=== PATIENT | female | born 1980 | race Caucasian/White ===

== ENCOUNTER 2018-07-03 16:10 | Observation (INO) ==
--- NOTE | 2018-07-03 16:26 | Emergency Department Note ---
Disposition Clinical Impression: Chest pain Disposition: Admitted As Inpatient Condition: Good General Adult HPI - General Stated complaint: muscle ache/cramp chest pain (anxiety like) Time Seen by Provider: 07/03/18 16:10 Source: patient Mode of arrival: ambulatory Limitations: no limitations Nursing Notes Reviewed: Yes Vital Signs Reviewed: Yes - History of Present Illness HPI Narrative: Patient complains of muscle cramps and chest pain/cramps for the past week. She says it feels like anxiety that she has had in the past. She went to the urgent care and they sent her to the emergency department. She will have any shortness of breath or other complaints present time. Onset (ago): day(s) (7 days) Location: chest Radiation: non-radiation Pain Severity: mild Quality: aching Consistency: intermittent Improves with: nothing Worsens with: nothing Associated symptoms: Reports: denies other symptoms - Related Data Home Medications Medication Instructions Recorded Confirmed Celecoxib [Celebrex] 200 mg PO DAILY 02/26/18 07/03/18 PARoxetine HCl [Paroxetine HCl] 40 mg PO DAILY 02/26/18 07/03/18 clonazePAM [Clonazepam] 1 mg PO HS 05/08/18 07/03/18 hydroCHLOROthiazide 12.5 mg PO HS 05/08/18 07/03/18 [Hydrochlorothiazide] hydrOXYzine pamoate [HydrOXYzine 25 - 50 mg PO HS 07/03/18 07/03/18 Pamoate] Previous Rx's Medication Instructions Recorded Ibuprofen [Motrin] 600 mg PO Q6HR PRN #60 tab 05/09/18 Allergies Allergy/AdvReac Type Severity Reaction Status Date / Time No Known Allergies Allergy Verified 02/26/18 11:22 All systems ED: reviewed and negative except as stated. Review of Systems: As Per HPI Constitutional: Denies: fever, chills, weakness, weight change Eyes: Denies: eye pain, eye discharge, vision change ENT ED: Denies: ear pain, throat pain, dental pain, hearing loss, epistaxis, congestion, dysphagia Cardiovascular: Denies: chest pain, palpitations, dyspnea on exertion, edema, syncope Respiratory: Denies: cough, dyspnea, wheezes, hemoptysis, stridor Gastrointestinal: Denies: abdominal pain, nausea, vomiting, diarrhea, constipation, hematemesis, melena, hematochezia Genitourinary: Denies: dysuria, frequency, hematuria, discharge Musculoskeletal: Denies: back pain, neck pain, arthralgia, myalgia Integumentary: Denies: rash, abrasion, lesions Neurological: Denies: headache, weakness, numbness, paresthesias, confusion, abnormal gait, vertigo Psychiatric: Denies: anxiety, depression, suicidal thoughts, homicidal thoughts, auditory hallucinations, visual hallucinations Endocrine: Denies: fatigue Hematological/Lymphatic: Denies: easy bleeding, easy bruising Past Medical History - Past Medical History Attestation: Yes The following information was validated with the patient. Source: patient, nursing notes reviewed Medical history: Reports: hypertension Surgical history: Reports: cholecystectomy Psychiatric history: Reports: anxiety, depression EDUCATION ASSOCIATE history: Reports: no EDUCATION ASSOCIATE history - Social History Smoking Status: Never smoker Smokeless Tobacco Status: No Alcohol use: Reports: none Drug use: Reports: none Physical Exam - General Limitations: no limitations General appearance: alert, in no apparent distress - Head Head exam: atraumatic, normocephalic, normal inspection - Eye Eye exam: Present: normal appearance, PERRL, EOMI - ENT ENT exam: normal exam, normal oropharynx, mucous membranes moist - Neck Neck exam: Present: normal inspection, full ROM, trachea midline - Chest Chest inspection: Present: normal inspection, symmetric chest wall rise - Respiratory Respiratory exam: Present: normal lung sounds bilaterally - Cardiovascular Cardiovascular exam: Present: regular rate, normal rhythm, normal heart sounds - Abdominal Exam Abdominal exam: Present: soft, Non-Tender. Absent: tenderness, distention, guarding, rebound, rigidity - Extremities Exam Extremities exam: Present: normal inspection, full ROM. Absent: tenderness, pedal edema - Back Exam Back exam: Present: normal inspection, full ROM. Absent: tenderness - Neurological Exam Neurological exam: Present: alert, oriented X3 - Psychiatric Psychiatric exam: Present: normal affect, normal mood - Skin Skin exam: Present: warm, dry, intact Course Vital Signs Temperature 99.6 F 07/03/18 16:24 Pulse Rate 88 07/03/18 16:24 Respiratory Rate 18 07/03/18 16:24 Blood Pressure 132/97 07/03/18 16:24 O2 Sat by Pulse Oximetry 97 07/03/18 16:24 Temperature 97.8 F 07/03/18 20:35 Pulse Rate 70 07/03/18 20:35 Respiratory Rate 15 07/03/18 20:35 Blood Pressure 110/76 07/03/18 20:35 O2 Sat by Pulse Oximetry 98 07/03/18 20:35 Oxygen Delivery Oxygen Delivery Room Air Medical Decision Making - MDM Narrative Medical decision making narrative: I reviewed the patient's medication list Patient's laboratory studies EKG chest x-ray since unremarkable. She did get total relief with 2 nitroglycerin tablets. - Lab Data Lab results reviewed: Yes I reviewed the patient's lab results. Result diagrams: 07/03/18 16:39 07/03/18 16:39 Lab Results 07/03/18 07/03/18 07/03/18 Range/Units 16:39 16:39 16:39 WBC 11.7 H (4.3-11.1) K/mcL RBC 4.44 (3.82-4.97) M/mcL Hgb 14.0 (11.5-15.4) g/dL Hct 41.3 (35.3-44.9) % MCV 93.0 (83.0-100.0) fL MCH 31.5 (28.0-33.3) pg MCHC 33.9 (31.6-35.5) g/dL RDW 12.8 (11.5-14.5) % Plt Count 309 (140-400) K/mcL MPV 10.1 (9.4-12.4) fL Immature Gran % 0.7 (0-4) % Seg Neutrophils % 59.1 % Lymphocytes % 30.2 % Monocytes % 7.5 % Eosinophils % 1.9 % Basophils % 0.6 % Neutrophils # 6.9 (1.6-8.9) K/mcL Lymphocytes # 3.5 (0.6-4.6) K/mcL Monocytes # 0.9 (0.0-1.3) K/mcL Eosinophils # 0.2 (0.0-0.6) K/mcL Basophils # 0.1 (0.0-0.2) K/mcL PT 10.9 (9.4-12.1) Seconds INR 1.0 APTT 31.8 (26.0-36.0) Seconds Sodium 134 L (136-145) mEq/L Potassium 3.4 L (3.5-5.1) mEq/L Chloride 99 (98-107) mEq/L Carbon Dioxide 28 (23-29) mEq/L BUN 13 (6-20) mg/dL Creatinine 0.79 (0.60-1.20) mg/dL Est GFR ( Amer) > 60 (> 60) Est GFR (Non-Af Amer) > 60 (> 60) BUN/Creatinine Ratio 16 (6-26) Glucose 99 (70-105) mg/dL Calculated Osmolality 278 L (280-300) Calcium 9.4 (8.6-10.3) mg/dL Total Bilirubin 0.7 (0.3-1.0) mg/dL AST 15 (13-39) Units/L ALT 15 (7-52) Units/L Alkaline Phosphatase 71 (34-104) Units/L Troponin I < 0.03 (< 0.04) ng/mL Serum Total Protein 6.9 (6.4-8.9) g/dL Albumin 4.1 (3.5-5.7) g/dL Globulin 2.8 (2.4-3.5) g/dL Albumin/Globulin Ratio 1.5 (1.1-2.2) 07/03/18 Range/Units 19:03 WBC (4.3-11.1) K/mcL RBC (3.82-4.97) M/mcL Hgb (11.5-15.4) g/dL Hct (35.3-44.9) % MCV (83.0-100.0) fL MCH (28.0-33.3) pg MCHC (31.6-35.5) g/dL RDW (11.5-14.5) % Plt Count (140-400) K/mcL MPV (9.4-12.4) fL Immature Gran % (0-4) % Seg Neutrophils % % Lymphocytes % % Monocytes % % Eosinophils % % Basophils % % Neutrophils # (1.6-8.9) K/mcL Lymphocytes # (0.6-4.6) K/mcL Monocytes # (0.0-1.3) K/mcL Eosinophils # (0.0-0.6) K/mcL Basophils # (0.0-0.2) K/mcL PT (9.4-12.1) Seconds INR APTT (26.0-36.0) Seconds Sodium (136-145) mEq/L Potassium (3.5-5.1) mEq/L Chloride (98-107) mEq/L Carbon Dioxide (23-29) mEq/L BUN (6-20) mg/dL Creatinine (0.60-1.20) mg/dL Est GFR ( Amer) (> 60) Est GFR (Non-Af Amer) (> 60) BUN/Creatinine Ratio (6-26) Glucose (70-105) mg/dL Calculated Osmolality (280-300) Calcium (8.6-10.3) mg/dL Total Bilirubin (0.3-1.0) mg/dL AST (13-39) Units/L ALT (7-52) Units/L Alkaline Phosphatase (34-104) Units/L Troponin I < 0.03 (< 0.04) ng/mL Serum Total Protein (6.4-8.9) g/dL Albumin (3.5-5.7) g/dL Globulin (2.4-3.5) g/dL Albumin/Globulin Ratio (1.1-2.2) - Radiology Data Radiology results reviewed: Yes I reviewed the patient's radiology results. - EKG Data EKG #1 EKG attestation: Yes I reviewed and interpreted this EKG. EKG results narrative: EKG shows a sinus rhythm with a rate of 94 bpm. KS interval is 145 ms. QRS duration 83 ms. QT interval 362 QTc interval 414 ms R axis of [address] elevation. Nonspecific T changes are noted
[2018-07-03] MEDS ORDERED: Aspirin 81 MG TAB.CHEW PO STA (16:34)
[2018-07-03] MEDS ORDERED: Nitroglycerin 0.4 MG TAB.SUBL SL PRN ×2 (16:34→20:33)
[2018-07-03 16:43] LABS: Basophils # 0.1 K/mcL (0.0-0.2); Basophils % 0.6 %; Eosinophils # 0.2 K/mcL (0.0-0.6); Eosinophils % 1.9 %; Hematocrit 41.3 % (35.3-44.9); Immature Granulocytes % 0.7 % (0-4); Lymphocytes # 3.5 K/mcL (0.6-4.6); Lymphocytes % 30.2 %; Mean Corpuscular HGB Conc 33.9 g/dL (31.6-35.5); Mean Corpuscular Hemoglobin 31.5 pg (28.0-33.3); Mean Platelet Volume 10.1 fL (9.4-12.4); Monocytes # 0.9 K/mcL (0.0-1.3); Monocytes % 7.5 %; Neutrophils # 6.9 K/mcL (1.6-8.9); Platelet Count 309 K/mcL (140-400); Red Blood Count 4.44 M/mcL (3.82-4.97); Red Cell Distribution Width 12.8 % (11.5-14.5); Segmented Neutrophils % 59.1 %
[2018-07-03] MEDS ORDERED: 0.9 % Sodium Chloride 1,000 ML IVC SCH ×2 (16:45→20:33)
[2018-07-03 16:48] LABS: Prothrombin Time 10.9 Seconds (9.4-12.1)
[2018-07-03 16:50] LABS: Activated Partial Thrombo Time 31.8 Seconds (26.0-36.0)
[2018-07-03 17:01] LABS: Troponin I < 0.03 ng/mL (< 0.04)
[2018-07-03 17:13] LABS: Alanine Aminotransferase 15 Units/L (7-52); Albumin 4.1 g/dL (3.5-5.7); Albumin/Globulin Ratio 1.5 (1.1-2.2); Alkaline Phosphatase 71 Units/L (34-104); Aspartate Amino Transferase 15 Units/L (13-39); BUN/Creatinine Ratio 16 (6-26); Bilirubin,Total 0.7 mg/dL (0.3-1.0); Blood Urea Nitrogen 13 mg/dL (6-20); Calcium 9.4 mg/dL (8.6-10.3); Carbon Dioxide 28 mEq/L (23-29); Chloride 99 mEq/L (98-107); Globulin 2.8 g/dL (2.4-3.5); Glucose 99 mg/dL (70-105); Osmolality,Calculated 278 (280-300); Potassium 3.4 mEq/L (3.5-5.1); Sodium 134 mEq/L (136-145); Total Protein 6.9 g/dL (6.4-8.9); eGFR For Non-African Americans > 60 (> 60)
[2018-07-03] MEDS ORDERED: Isovue-370 500 ML BOTTLE IVP ONE (18:52)
[2018-07-03] MEDS ORDERED: Naloxone 0.4 MG/ML INJ IVP PRN (20:33)
[2018-07-03] MEDS ORDERED: Ibuprofen 600 MG TABLET PO PRN (20:33)
[2018-07-03] MEDS ORDERED: hydroCHLOROthiazide 25 MG TABLET PO SCH (21:00)
[2018-07-03] MEDS ORDERED: hydrOXYzine pamoate 25 MG CAPSULE PO SCH (21:00)
[2018-07-03] MEDS ORDERED: clonazePAM 1 MG TABLET PO SCH (21:00)
[2018-07-03] MEDS ORDERED: 0.9 % Sodium Chloride 1,000 ML ONE (21:36)
[2018-07-04 07:57] LABS: Basophils # 0.1 K/mcL (0.0-0.2); Basophils % 0.6 %; Eosinophils # 0.2 K/mcL (0.0-0.6); Eosinophils % 2.7 %; Hematocrit 37.9 % (35.3-44.9); Hemoglobin 12.8 g/dL (11.5-15.4); Immature Granulocytes % 0.7 % (0-4); Lymphocytes # 2.8 K/mcL (0.6-4.6); Lymphocytes % 31.4 %; Mean Corpuscular HGB Conc 33.8 g/dL (31.6-35.5); Mean Corpuscular Hemoglobin 31.7 pg (28.0-33.3); Mean Corpuscular Volume 93.8 fL (83.0-100.0); Monocytes # 0.6 K/mcL (0.0-1.3); Monocytes % 7.1 %; Neutrophils # 5.2 K/mcL (1.6-8.9); Platelet Count 270 K/mcL (140-400); Red Blood Count 4.04 M/mcL (3.82-4.97); Segmented Neutrophils % 57.5 %
[2018-07-04 08:10] LABS: BUN/Creatinine Ratio 14 (6-26); Blood Urea Nitrogen 12 mg/dL (6-20); Calcium 8.7 mg/dL (8.6-10.3); Carbon Dioxide 28 mEq/L (23-29); Chloride 102 mEq/L (98-107); Glucose 105 mg/dL (70-105); Osmolality,Calculated 282 (280-300); Potassium 3.6 mEq/L (3.5-5.1); Sodium 136 mEq/L (136-145); eGFR For Non-African Americans > 60 (> 60)
--- NOTE | 2018-07-04 08:38 | Internal Med History&Physical ---
Date of Encounter: 07/04/18 Time of Encounter: 12:20 Assessment and Plan (1) Chest pain Current visit: Yes Status: Acute she has chest pain relieved with nitro x2. she has htn. concern for ischemia with these symptoms. she was obs trop neg x 3 she is cp free currently. will d/c home outpt stress Qualifiers: Chest pain type: unspecified Qualified Code(s): R07.9 - Chest pain, unspecified (2) Essential (primary) hypertension Current visit: Yes Status: Acute will cont the hctz. (3) Depression with anxiety Current visit: Yes Status: Acute no changes made to medication (4) Status post hysterectomy Current visit: No Status: Acute she is off the estrogen. pe study neg for pe. Internal Medicine - H&P: HPI Chief complaint: chest pain Admitted From: Home History of present illness: Ms. Sena is a 37 year old female she was admitted for obs from the ER last night. she came to the ER with a 7 hx of intermittent CP. it is substernal, no radiation, will come and go she is not sure what brings it on or resolves it except nitro. She did get 2 nitro in the ER last night that did relieve her pain. because the nitro relieved her pain, the er physician was concerned it was cardiac related and felt she need to obs for a corinna. she did have some chest pain last night after getting to the floor and she was given ibuprofen to help. She had hysterectomy/bso done 1/ for endometrial hyperplasia. because of her recent surg, a ct angio of the chest was done to r/o pe. there was no pe on the study. she is not diaphoretic, no sob, no cough. no rash. no dizzy, no syncope, no pain with palpation she has also been having myalagia dn cramps in her feet legs thighs bilateral for several months. she was in the UC on saturday with a 1 day hx of rhinorhea and given augmentin for a sinus infection. she is taking it. she is not having gi side effects. she has been under significant strain with the care of her nephew. Past Med Surg Social Fam HX - Past Medical History Medical history: asthma, hypertension, migraine, other (obesity) Additional medical history: Anxiety and depression. Psychiatric history: anxiety, depression - Past Surgical History Surgical History: cholecystectomy (2008), hysterectomy (robotic assist hyst, bso, cystoscopy 05/07/18), other (dental 2009, t&a, d&c 2018, diagnostic laproscopy d&c polypectomy 02/26/2018) Additional surgical history: Pt states she had a Hysterectomy on 05/08/18 and that she had Lymes Disease as a child. - Social History Smoking Status: Never smoker Smokeless Tobacco Status: No Alcohol use: none Drug use: none - Family History Mother Hx Family Endocrine Disorder: Yes (hypothyroid) Father Hx Family Endocrine Disorder: Yes (dm2) Paternal Grandmother Hx Family Endocrine Disorder: Yes (dm2) Maternal Grandmother Hx Family Cardiac Disorders: Yes (htn) Hx Family Cancer: Yes Maternal Grandfather Hx Family Cardiac Disorders: Yes (htn) Hx Family Endocrine Disorder: Yes (dm2) Internal Medicine - H&P: Meds Celecoxib [Celebrex] 200 mg PO DAILY 02/26/18 [History] PARoxetine HCl [Paroxetine HCl] 40 mg PO DAILY 02/26/18 [History] clonazePAM [Clonazepam] 1 mg PO HS 05/08/18 [History] hydroCHLOROthiazide [Hydrochlorothiazide] 12.5 mg PO HS 05/08/18 [History] hydrOXYzine pamoate [HydrOXYzine Pamoate] 25 - 50 mg PO HS 07/03/18 [History] Allergy/AdvReac Type Severity Reaction Status Date / Time No Known Allergies Allergy Verified 02/26/18 11:22 All Systems PM: A 10-system review of systems was performed and is negative for pertinent findings except as documented above in the HPI. - Constitutional Constitutional: no chills, no excessive sweating, no fatigue, no fever(s), no night sweats, no weakness - EENT Eyes: no change in vision Nose, mouth and throat: nasal discharge, no sore throat - Cardiovascular Cardiovascular ROS IM: chest pain, no claudication, no diaphoresis, no dyspnea, no dyspnea on exertion, no edema, no irregular heart rhythm, no lightheadedness, no palpitations, no syncope - Respiratory Respiratory: no cough, no dyspnea, no wheezing - Gastrointestinal Gastrointestinal: no constipation, no diarrhea, no loose stools, no melena, no nausea, no vomiting - Genitourinary Genitourinary: no dysuria - Musculoskeletal Musculoskeletal ROS IM: muscle cramps, myalgias, no arthralgias, no joint swelling, no limited range of motion, no muscle weakness, no numbness - Integumentary Integumentary IM: no pruritus, no rash - Hematologic/Lymphatic Hematologic/Lymphatic: no easy bruising - Constitutional Vitals: Temp Pulse Resp BP Pulse Ox 97.6 F 63 15 132/89 99 07/04/18 04:42 07/04/18 04:42 07/04/18 04:42 07/04/18 04:42 07/04/18 04:42 General appearance: Present: A&O X 3, no acute distress, answers questions a ppropriately - Head Head exam: Present: atraumatic, normocephalic - Neck Neck exam general surgery: Present: supple, trachea midline. Absent: lymphadenopathy, tenderness - Respiratory Respiratory exam: Present: CTAB - Cardiovascular Cardiovascular exam: Present: RRR, +S1, +S2. Absent: systolic murmur - GI/Abdominal GI/Abdominal exam: Present: normal bowel sounds, no peritoneal signs. Absent: distended, guarding (obese limiting exam ), mass, soft - Extremities Exam Extremities exam: Present: normal capillary refill. Absent: mottling, pedal edema - Incison Incision: Present: clean and dry (of abd) - Skin Skin exam: Present: dry, warm. Absent: mottled, rash Internal Med - H&P Results - Labs CBC & Chem 7: 07/04/18 07:50 07/04/18 07:50 Labs: Short CBC 07/03/18 07/04/18 Range/Units 16:39 07:50 WBC 11.7 H 9.0 (4.3-11.1) K/mcL Hgb 14.0 12.8 (11.5-15.4) g/dL Hct 41.3 37.9 (35.3-44.9) % Plt Count 309 270 (140-400) K/mcL Neutrophils # 6.9 5.2 (1.6-8.9) K/mcL BMP 07/03/18 07/04/18 16:39 07:50 Sodium 134 L 136 Potassium 3.4 L 3.6 Chloride 99 102 Carbon Dioxide 28 28 BUN 13 12 Creatinine 0.79 0.87 Glucose 99 105 Calcium 9.4 8.7 Cardiac Enzymes 07/03/18 07/03/18 07/04/18 Range/Units 16:39 19:03 01:45 Troponin I < 0.03 < 0.03 < 0.03 (< 0.04) ng/mL 07/04/18 Range/Units 07:50 Troponin I < 0.03 (< 0.04) ng/mL Liver Function 07/03/18 Range/Units 16:39 Total Bilirubin 0.7 (0.3-1.0) mg/dL AST 15 (13-39) Units/L ALT 15 (7-52) Units/L Alkaline Phosphatase 71 (34-104) Units/L Albumin 4.1 (3.5-5.7) g/dL - Impressions ITS Impressions Chest X-Ray 07/03/18 16:29 IMPRESSION: No acute process. Bibasilar atelectasis. D/ / Fatmata Becker MD / Fatmata Becker MD Interpreting Provider: Fatmata Becker MD Chest CTA 07/03/18 18:52 IMPRESSION: No evidence of pulmonary embolism or acute pulmonary abnormality. D/ / Gunner Mcclendon MD / Gunner Mcclendon MD Interpreting Provider: Gunner Mclcendon MD
[2018-07-04] MEDS ORDERED: Celecoxib 200 MG CAPSULE PO SCH (09:00)
--- NOTE | 2018-07-04 09:16 | Discharge Summary ---
- NOTES TO OUTPATIENT PROVIDER Notes to Outpatient Provider: needs stress test, check on tsh, vit b12, d, folate result Orders not resulted at time of discharge: Pending orders 07/04/18 06:00 ECG 12 lead ECG [ECG] AM 0600 Date of Encounter: 07/04/18 Time of Encounter: 13:15 - Discharge Diagnosis (1) Chest pain Priority: Primary Status: Acute Comments: She was evaluated for PE as a cause of it chest pain her CT did not show PE. She had 3 serial troponins that were negative. She did have substernal chest pain that was relieved with 2 nitroglycerin. Will arrange for an outpatient stress test for her to undergo. If it returns she is to seek treatment. Qualifiers: Chest pain type: unspecified Qualified Code(s): R07.9 - Chest pain, unspecified (2) Essential (primary) hypertension Priority: Secondary Status: Acute Comments: This was stable on her home hydrochlorothiazide will continue that as an outpatient no changes were made to her blood pressure medication. (3) Depression with anxiety Priority: Secondary Status: Acute Comments: was stable she does have some stressors in her life been no changes were made to her home medication. (4) Status post hysterectomy Priority: Secondary Status: Acute Hospital course: Ms. Sena is a 37 year old female pResented to the emergency room after she was at the urgent care with substernal chest pain. It is going on for 7 days prior to admission with come and go the only thing that relieved it was 2 doses of nitroglycerin in the emergency room. She did not have shortness of breath diaphoresis or nausea with it. She does have a history of hypertension. There were no alarms on the telemetry. She will be set up for an outpatient stress test. An outpatient office follow-up. If anything changes she is to seek treatment. Discharge discussed with: patient, family - Time Spent with Patient Total time spent providing and/or coordinating discharge services: - Discharge Medications Prescriptions: Continue PARoxetine HCl [Paroxetine HCl] 40 mg PO DAILY Celecoxib [Celebrex] 200 mg PO DAILY clonazePAM [Clonazepam] 1 mg PO HS hydroCHLOROthiazide [Hydrochlorothiazide] 12.5 mg PO HS hydrOXYzine pamoate [HydrOXYzine Pamoate] 25 - 50 mg PO HS Discontinued Ibuprofen [Motrin] 600 mg PO Q6HR PRN #60 tab PRN Reason: Pain Home Medications: Celecoxib [Celebrex] 200 mg PO DAILY 02/26/18 [History] PARoxetine HCl [Paroxetine HCl] 40 mg PO DAILY 02/26/18 [History] clonazePAM [Clonazepam] 1 mg PO HS 05/08/18 [History] hydroCHLOROthiazide [Hydrochlorothiazide] 12.5 mg PO HS 05/08/18 [History] hydrOXYzine pamoate [HydrOXYzine Pamoate] 25 - 50 mg PO HS 07/03/18 [History] Allergies/Adverse Reactions: Allergy/AdvReac Type Severity Reaction Status Date / Time No Known Allergies Allergy Verified 02/26/18 11:22 Date of admission: 07/03/18 20:18 Primary care physician: Denice Jones CNP - Constitutional Vitals: Temp Pulse Resp BP Pulse Ox 97.6 F 63 15 132/89 99 07/04/18 04:42 07/04/18 04:42 07/04/18 04:42 07/04/18 04:42 07/04/18 04:42 General appearance: Present: A&O X 3, no acute distress, answers questions appropriately - Head Head exam: Present: atraumatic - Neck Neck exam general surgery: Present: supple, trachea midline. Absent: lymphadenopathy, tenderness - Respiratory Respiratory exam: Present: CTAB - Cardiovascular Cardiovascular exam: Present: RRR, +S1, +S2. Absent: systolic murmur - GI/Abdominal GI/Abdominal exam: Present: normal bowel sounds, soft (Obese limiting exam), no peritoneal signs. Absent: guarding, mass, tenderness - Extremities Exam Extremities exam: Present: normal capillary refill, warm. Absent: mottling, pedal edema - Skin Skin exam: Present: dry, warm. Absent: rash - Patient Status Disposition: Home, Self-Care Condition: Good Functional capacity at discharge: independent ambulation Overall status at discharge: patient is progressing back to baseline - Discharge Instructions Instructions: Chest Pain (DC), Chronic Hypertension (DC), Anxiety (DC) Follow Up With: Denice Jones CNP [Primary Care Provider] - 07/10/18 8:45 am Forms: ED Satisfaction Letter - Diet and Activity Diet: low fat, low cholesterol, low salt diet
[2018-07-04 13:22] VITALS: BP 131/86
--- NOTE | 2018-07-04 15:07 | Electrocardiograph Report ---
[place] [id number] Test Date: 2018-07-03 Pat Name: Vicky Sena Department: 2000 Room: 114 Gender: F Manager Room: ERIC : [id number] Requested By: Radu Call Order Number: [id number] Mario MD: Hyacinth Franks Measurements Intervals Dolores Rate: 94 P: 30 LA: 145 QRS: 1 QRSD: 83 T: -4 QT: 362 QTc: 414 Interpretive Statements SINUS RHYTHM Electronically Signed On 07-04-2018 15:05:35 EST by Hyacinth Franks
[2018-07-04 20:58] LABS: Folate 9.6 ng/mL (3.0-16.0)
== END 2018-07-04 15:30 | disposition home or self-care (01) ==
LOC: EMEROOGRE 16:10 → INPGRE 16:10
PROVIDERS: ADMIT Family Medicine; ATTEND Family Medicine